=== PATIENT | female | born 1970 | race Hispanic/Latino ===

== ENCOUNTER → 2020-10-09 17:37 | Outpatient (CLI) | payer OTHER, SELFPAY ==
--- NOTE | 2020-10-09 | DI.MRI.S_ITS ---
PROCEDURE: MR SHOULDER RT WO CON INDICATIONS: PAIN IN RT KNEE AND SHOULDER TECHNIQUE: Noncontrast oblique coronal T2 fast spin echo with fat saturation, oblique sagittal T1 spin echo and T2 fast spin echo with fat saturation, axial T1 spin echo and T2 fast spin echo with fat saturation through the shoulder. COMPARISON: None. FINDINGS: Image quality: Excellent. Rotator cuff: There is tendinosis and low-grade articular and bursal surface partial thickness tear involving distal supraspinatus at its insertion on the humeral head extending to musculotendinous junction. Distal infraspinatus is intact. Tendinosis and low-grade partial-thickness tear involving superior to mid fibers of distal subscapularis is seen. No full-thickness rotator cuff tendon rupture. Sagittal images demonstrate no significant muscle atrophy. Bones and bursae: No bone marrow contusions or fractures. Moderate acromioclavicular joint osteoarthritic changes are seen with downward osteophyte formation depressing the musculotendinous junction of supraspinatus. Nonspecific intraosseous cyst formation in greater tuberosity of humeral head is seen. Mild to moderate glenohumeral joint osteoarthritic changes also seen. There is small amount of joint effusion and subacromial subdeltoid bursal fluid. Capsule and soft tissues: There is suggestion of superior anterior labral tear at 12 to 1 o'clock position. The long head of the biceps tendinosis is seen. The rotator interval appears normal, without fibrosis. The coracohumeral ligament is normal in thickness. IMPRESSION: 1. Tendinosis and low-grade articular and bursal surface partial thickness tear involving distal supraspinatus extending to musculotendinous junction. Tendinosis and low-grade partial-thickness tear involving superior to mid fibers of distal subscapularis. 2. Moderate acromioclavicular joint osteoarthritis and [id number] glenohumeral joint osteoarthritis. Small amount of joint effusion and subacromial subdeltoid bursal fluid. 3. Suggestion of superior anterior labral tear at 12 to 1 o'clock position. 4. Proximal intra-articular portion of long head of biceps tendinosis. Dictated by: Miles Aguilar M.D. on 10/10/2020 at 8:44 Approved by: Miles Aguilar M.D. on 10/10/2020 at 8:46
--- NOTE | 2020-10-09 | DI.MRI.S_ITS ---
PROCEDURE: MR KNEE RT WO CON INDICATIONS: PAIN IN RT KNEE AND SHOULDER TECHNIQUE: Noncontrast sagittal PD fast spin echo and T2 fast spin echo with fat saturation, sagittal 3-D FLASH with fat saturation; coronal T1 spin echo and PD fast spin echo with fat saturation, and axial PD fast spin echo with fat saturation through the knee. COMPARISON: None. FINDINGS: Image quality: Excellent. Menisci: There is complex tearing of the body and posterior horn of the lateral meniscus with a horizontal oblique component extending to the inner third of the tibial articular surface at the meniscal body and a shallow radial component at the posterior horn. The medial meniscus is intact. Cruciate ligaments: The anterior and posterior cruciate ligaments appear intact. Medial structures: There is trace edema overlying the medial collateral ligament that could indicate a low-grade sprain. The semimembranosus tendon insertions and meniscocapsular junction appear intact. Visualized portions of the pes anserinus tendons appear normal. No abnormal bursal fluid. Lateral structures: The lateral collateral ligament, long and short heads of the biceps femoris tendon appear intact. The popliteus tendon appears intact. No signs of posterolateral corner injury. Iliotibial band appears normal. Anterior structures: The quadriceps and patellar tendons appear intact. Patellar alignment is normal. No femoral trochlear dysplasia or ventral trochlear prominence. No edema in the infrapatellar fat pad. Bones and cartilage: No bone marrow contusions or fractures. There is mild partial-thickness cartilage irregularity in the central weight-bearing portion of the medial femoral condyle. There is moderate to high-grade cartilage loss in the central to posterior weight-bearing portion of the lateral femorotibial compartment with minimal subchondral edema. Deep cartilage fissuring is seen in the medial femoral trochlea. Joint space: There is a small joint effusion. A trace medial popliteal cyst is present. IMPRESSION: 1. Complex tearing of the lateral meniscus with a horizontal oblique component at the meniscal body extending to the inner third of the tibial articular surface and a shallow radial component in the posterior horn. 2. Possible mild low-grade sprain of the proximal medial collateral ligament. 3. Mild tricompartmental degenerative changes are most severe in the lateral compartment where there is grade 3-4 chondromalacia and marginal osteophyte formation. Grade 2 chondromalacia is seen in the medial compartment and there is deep cartilage fissuring in the anterior compartment. 4. Small joint effusion. Dictated by: William Abdi M.D. on 10/10/2020 at 8:31 Approved by: William Abdi M.D. on 10/10/2020 at 8:42
== END ==
PROVIDERS: Referring Provider Family Medicine; Visit Provider Family Medicine
DX: M25.561 Pain in right knee (principal); S83.271A Complex tear of lateral meniscus, current injury, right knee, initial encounter; M94.261 Chondromalacia, right knee; M25.461 Effusion, right knee; M25.511 Pain in right shoulder; M75.111 Incomplete rotator cuff tear or rupture of right shoulder, not specified as traumatic; M19.011 Primary osteoarthritis, right shoulder; M25.411 Effusion, right shoulder
CPT/HCPCS: 73221; 73721

== ENCOUNTER → 2020-10-29 19:12 | Outpatient (CLI) | payer OTHER, SELFPAY ==
--- NOTE | 2020-10-29 | DI.MRI.S_ITS ---
PROCEDURE: MR HIP RT WO CON INDICATIONS: PAIN IN UNSPECIFIED HIP TECHNIQUE: Noncontrast coronal T1 spin echo and STIR through the bony pelvis. Coronal and axial T2 fast spin echo with fat saturation, sagittal T1 spin echo, and oblique axial T2 fast spin echo with fat saturation through the hip. COMPARISON: None. FINDINGS: Image quality: Excellent. Bones and joints: Bone marrow of the pelvic ring and proximal femurs show normal signal throughout. No intraosseous lesions or fractures. No avascular necrosis of the femoral heads. The visualized lower lumbar spine appears normally aligned. Tendons and ligaments: There is moderate grade partial thickness tearing of the right gluteus medius and minimus tendons at the femoral insertion site. The nearby proximal iliotibial band also appears intact. The iliopsoas tendon appears intact, without adjacent bursal fluid collections or evidence for impingement syndrome. The origin of the hamstring tendon is intact at the ischial tuberosity, as well as the associated sacrotuberous ligament. The straight and reflected heads of the rectus femoris muscle origin appear intact, as well as the conjoint tendon. The ligamentum teres appears intact where visualized. Labrum and cartilage: There is mild ill-defined T2 signal elevation within the superolateral and anterosuperior aspect of the right hip labrum. Cartilage surface of the femoral head appears of normal thickness. The alpha angle of the femur is within normal limits at less than 55 degrees. Soft tissues: Visualized muscles demonstrate normal bulk and internal signal. Quadratus femoris muscle demonstrates no internal edema to suggest ischiofemoral impingement. The proximal sciatic neurovascular bundle appears normal adjacent to the hamstring tendons. No free pelvic fluid. Bladder wall thickness is normal. Genitourinary structures and bowel loops appear normal where visualized. IMPRESSION: 1. Partial-thickness tearing of the right gluteus medius and minimus tendons. 2. Findings suggestive of right hip labral tearing. This could be further assessed with MRI arthrography, if clinically indicated. 3. No fracture or osseous lesion. Dictated by: Praveen Claire M.D. on 10/30/2020 at 8:50 Approved by: Praveen Claire M.D. on 10/30/2020 at 8:52
== END ==
PROVIDERS: PCP Family Medicine; Referring Provider Family Medicine; Visit Provider Family Medicine
DX: S39.013A Strain of muscle, fascia and tendon of pelvis, initial encounter (principal); M25.559 Pain in unspecified hip
CPT/HCPCS: 73721

== ENCOUNTER 2020-10-31 09:45 | Outpatient (RCR) | payer OTHER, SELFPAY ==
--- NOTE | 2020-10-24 15:51 | PT.OIE ---
Current Diagnoses Pain in unspecified shoulder (10/24/20) Visit Care Team Role Provider Type Jackelyn Bailey MD Attending Provider Non-Staff Primary Care Provider Referring Provider Specialty: Family Practice Address: [address] [place] [address], [id number] Email: Physical Therapy Initial Evaluation PT-OP-A Visit Information Start: 10/15/20 08:35 Freq: Status: Active Protocol: Document 10/24/20 10:34 MB (Rec: 10/24/20 10:50 MB [id number]) Out-Patient Physical Therapy Visit Information Visit Information Visit Type Initial Evaluation Visit Note Prime Visit Start Time 10:34 Visit Stop Time 11:11 Total Visit Minutes 37 Visit Number 1 Number of [employer] Visits 0 Precautions Precautions MRIs of right shoulder and right knee are positive for changes PT-OP-B Current Condition Start: 10/15/20 08:35 Freq: Status: Active Protocol: Document 10/24/20 10:34 MB (Rec: 10/24/20 10:50 MB [id number]) Current Condition History of Current Condition Onset Date 2015 initially and then 2020 worse Current Complaints Pain in right arm History of Current Condition Pt states that she is here another week. 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 She reports doing crossfit in 2016 and thinks that she might have injured her right shoulder initially at that time. She denies other acute injury to right shoulder and right knee that would explain MRI findings. Pt is right handed. Occ, she has numbness and tingling down her right arm. She occ has these symptoms when she is sleeping on her right side. Lately, she has been using two pillows under her head to help ease the right arm. Pt denies new onset of head and neck pain. Pt has dx of diabetes and she just started another medication. In [place], she does not get out much d/t air pollution and safety and COVID restrictions. She will be in [place] another year. She saw Dr. Watts who gave her a steroid injection and then ordered PT and said if it 's not better, come back in 6 weeks. Pt reports that she has a history of right knee pain, labral tear in hip and bursitis. Pt rates pain as 4/ 10 right shoulder, 3/10 B lateral hips and groin area, 1 /10 pain right knee. Pt states that she cannot walk more than three miles or she is done as far as pain. Prior Treatments and Tests Right shoulder MRI 10/09/20: tendinosis and low-grade artricular and bursal surface partial thickness tear involving distal supraspinatus extending to musculotendinous junction with similar type tear subscapularis; mod AC joint OA and mild-mod GH joint OA, suggestion of superior anterior labral tear 12-1 o' clock and long head biceps tendinosis Treatment Goals Patient/Caregiver Goals Establish course of treatment for right shoulder so that she knows what she needs to do when she goes to [place] and continues with PT there. PT-OP-C Subjective Start: 10/15/20 08:35 Freq: Status: Active Protocol: Document 10/24/20 10:34 MB (Rec: 10/24/20 10:50 MB [id number]) OP-PT Subjective Patient Comments Patient Comments See history of current condition Patient Questionnaires Quick Dash- Upper Extremity Quick Dash UE Score 23 Quick Dash UE Impairment 20 to 39% Impaired (Score 20- 39) PT-OP-J Posture/Palpation/Skin Start: 10/15/20 08:35 Freq: Status: Active Protocol: Document 10/24/20 10:34 MB (Rec: 10/24/20 15:50 MB [id number]) Posture Evaluation Comments Posture Comments Forward head, rounded shoulders, Dowager's hump, decreased thoracic kyphosis, increased lumbar lordosis, anterior tilt pelvis, left shoulder and SC joint higher than the right, left iliac crest higher than the right, eversion right foot. PT-OP-K Range of Motion Start: 10/15/20 08:35 Freq: Status: Active Protocol: Document 10/24/20 10:34 MB (Rec: 10/24/20 15:50 MB [id number]) Cervical Spine Range of Motion Cervical Spine Active Testing Position Standing Flexion 40 Extension 40 Rotation Left 65 Rotation Right 55 Lateral Flexion Left 30 Lateral Flexion Right 30 Shoulder Goniometric Range of Motion Shoulder Left Shoulder ROM WFL Yes Testing Position Standing Comments Also supine passive ER and IR with shoulder in 90/90 is normal Functional IR behind back Right Shoulder ROM WFL No Testing Position Standing Flexion 100 Abduction 105 Comments Pt limits AROM to pain-free range IR behind back deferred d/t discomfort Supine passive ER and IR with shoulder in 80 deg allowable passive abduction: ER 5 deg and IR 10 deg PT-OP-M Strength Start: 10/15/20 08:35 Freq: Status: Active Protocol: Document 10/24/20 10:34 MB (Rec: 10/24/20 15:50 MB [id number]) Shoulder Strength Shoulder Manual Muscle Testing Left Flexion 5 Normal Abduction (C5) 5 Normal External Rotation 5 Normal Internal Rotation 5 Normal Right Comments MMT deferred d/t pain and limited AROM Elbow/Forearm Strength Elbow and Forearm Manual Muscle Testing Bilateral Flexion (C6) 5 Normal Extension (C7) 5 Normal Wrist Strength Wrist Manual Muscle Testing Bilateral Flexion (C7) 5 Normal Extension (C6) 5 Normal PT-OP-Q Treatments Start: 10/15/20 08:35 Freq: Status: Active Protocol: Document 10/24/20 10:34 MB (Rec: 10/24/20 12:59 MB [id number]) Self-Care/Home Management Treatment Education Patient Education Body Mechanics,Joint Protection,Pain Management Other Education Proper sleeping position with cervical and UE support, use of frozen peas PT-OP-T Assessment and Plan Start: 10/15/20 08:35 Freq: Status: Active Protocol: Document 10/24/20 10:34 MB (Rec: 10/24/20 15:50 MB [id number]) Physical Therapy Assessment Rehab Potential Rehabilitation Potential Fair Evaluation Complexity Number of Personal Factors/Comorbidities 1-2 Number of Body Systems Impaired 3 Clinical Presentation at Evaluation Evolving Impairments Impairments Activity Tolerance,Functional Activities,Pain,Posture,ROM, Sensation,Soft Tissue Mobility ,Strength Other Impairments Pt reports paresthesias right C6 dermatome at night and when sleeping on her right side. Personal factors include right shoulder and right knee changes and pt is moving back to [place] in 1 week and so PT treatment will be reduced to 2 treatments. Her clinical presentation is evolving in setting of joint changes per MRI. Body systems affected include musculoskeletal, neuromuscular and endocrine. Goals 1 Short Term Goal (STG) Pt will perform progressive HEP with I including postural, self-massage, AAROM shoulder ROM, thoracic mobility and core exercises to improve pain and right UE use by 10/31/20. STG Duration 1 week Assessment Summary Assessment Pt is a 50 y/o female presenting with pain and paresthesias in her right UE in setting of anatomical changes per MRI. She presents with decreased ROM, functional use of arm and strength. 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 Will maximize a HEP and plan for her over two visits. She plans to get PT when she returns to [place]. Physical Therapy Plan Frequency and Duration Frequency of Treatment 2x/Week Duration of Treatment 1 week Plan of Care Start Date 10/24/20 Plan of Care End Date 10/31/20 Therapeutic Interventions Therapeutic Interventions Home Exercise Program,Joint Mobilizations,Manual Therapy, Neuromuscular Re-education, Patient/Caregiver Education, Self-Care/Home Management,Soft Tissue Mobilization,Taping, Therapeutic Activities, Therapeutic Exercises Modalities Cold Pack/Ice Massage,Hot Packs Next Visit Focus/Plan Next Note Type Treatment Note Next Visit Plan Initiate racquet ball massage, AAROM with cane, possible pulleys, thoracic mobility, create a possible exercise plan/recommendations going forward
--- NOTE | 2020-10-24 15:51 | PT.OPPOC ---
Physical, Occupational & Speech Therapy At [facility] Current Diagnoses Pain in unspecified shoulder (10/24/20) Visit Care Team Role Provider Type Jackelyn Bailey MD Attending Provider Non-Staff Primary Care Provider Referring Provider Specialty: Family Practice Address: [address] [place] [address], [id number] Email: Plan Of Care PT-OP-T Assessment and Plan Start: 10/15/20 08:35 Freq: Status: Active Protocol: Document 10/24/20 10:34 MB (Rec: 10/24/20 15:50 MB [id number]) Physical Therapy Assessment Rehab Potential Rehabilitation Potential Fair Evaluation Complexity Number of Personal Factors/Comorbidities 1-2 Number of Body Systems Impaired 3 Clinical Presentation at Evaluation Evolving Impairments Impairments Activity Tolerance,Functional Activities,Pain,Posture,ROM, Sensation,Soft Tissue Mobility ,Strength Other Impairments Pt reports paresthesias right C6 dermatome at night and when sleeping on her right side. Personal factors include right shoulder and right knee changes and pt is moving back to [place] in 1 week and so PT treatment will be reduced to 2 treatments. Her clinical presentation is evolving in setting of joint changes per MRI. Body systems affected include musculoskeletal, neuromuscular and endocrine. Goals 1 Short Term Goal (STG) Pt will perform progressive HEP with I including postural, self-massage, AAROM shoulder ROM, thoracic mobility and core exercises to improve pain and right UE use by 10/31/20. STG Duration 1 week Assessment Summary Assessment Pt is a 50 y/o female presenting with pain and paresthesias in her right UE in setting of anatomical changes per MRI. She presents with decreased ROM, functional use of arm and strength. 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 Will maximize a HEP and plan for her over two visits. She plans to get PT when she returns to [place]. Physical Therapy Plan Frequency and Duration Frequency of Treatment 2x/Week Duration of Treatment 1 week Plan of Care Start Date 10/24/20 Plan of Care End Date 10/31/20 Therapeutic Interventions Therapeutic Interventions Home Exercise Program,Joint Mobilizations,Manual Therapy, Neuromuscular Re-education, Patient/Caregiver Education, Self-Care/Home Management,Soft Tissue Mobilization,Taping, Therapeutic Activities, Therapeutic Exercises Modalities Cold Pack/Ice Massage,Hot Packs Next Visit Focus/Plan Next Note Type Treatment Note Next Visit Plan Initiate racquet ball massage, AAROM with cane, possible pulleys, thoracic mobility, create a possible exercise plan/recommendations going forward Plan of Care Dates Plan of Care Start Date 10/24/20 Plan of Care End Date 10/31/20 Electronically Signed by: Geovanna Sanchez, PT 10/24/20 1403 Please Sign and Return: I have reviewed this Plan of Care and certify that the skilled therapy services above are required to meet the patient?s needs. Physician Signature Date Printed Name and Credentials Clinical Instructor Signature Printed Name and Credentials
--- NOTE | 2020-10-29 14:06 | PT.OTN ---
Current Diagnoses Pain in unspecified shoulder (10/29/20) Physical Therapy Treatment Note PT-OP-A Visit Information Start: 10/15/20 08:35 Freq: Status: Active Protocol: Document 10/29/20 12:55 AMH (Rec: 10/29/20 13:57 AMH [id number]) Out-Patient Physical Therapy Visit Information Visit Information Visit Type Treatment Note Visit Start Time 12:55 Visit Stop Time 13:40 Total Visit Minutes 45 Visit Number 2 PT-OP-B Current Condition Start: 10/15/20 08:35 Freq: Status: Active Protocol: Document 10/24/20 10:34 MB (Rec: 10/24/20 10:50 MB [id number]) Current Condition History of Current Condition Onset Date 2015 initially and then 2020 worse Current Complaints Pain in right arm History of Current Condition Pt states that she is here another week. She is active and is stationed in [place]. 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 She denies other acute injury to right shoulder and right knee that would explain MRI findings. Pt is right handed. Occ, she has numbness and tingling down her right arm. She occ has these symptoms when she is sleeping on her right side. Lately, she has been using two pillows under her head to help ease the right arm. Pt denies new onset of head and neck pain. Pt has dx of diabetes and she just started another medication. In [place], she does not get out much d/t air pollution and safety and COVID restrictions. She will be in [place] another year. She saw Dr. Watts who gave her a steroid injection and then ordered PT and said if it 's not better, come back in 6 weeks. Pt reports that she has a history of right knee pain, labral tear in hip and bursitis. Pt rates pain as 4/ 10 right shoulder, 3/10 B lateral hips and groin area, 1 /10 pain right knee. Pt states that she cannot walk more than three miles or she is done as far as pain. 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 PT-OP-C Subjective Start: 10/15/20 08:35 Freq: Status: Active Protocol: Document 10/29/20 12:55 AMH (Rec: 10/29/20 13:55 AMH [id number]) OP-PT Subjective Patient Comments Patient Comments PT REPORTS THE injection she recieved the end of September seems to have helped her shoulder. She is being more careful with her shoulder now but it seems like my ROM is alot better now and there is less pain. Pt says her referral to PT was supposed to include her right knee. This got left out but supposedly the referral just came through. Patient Reported Progress Improving PT-OP-J Posture/Palpation/Skin Start: 10/15/20 08:35 Freq: Status: Active Protocol: Document 10/24/20 10:34 MB (Rec: 10/24/20 15:50 MB [id number]) Posture Evaluation Comments Posture Comments Forward head, rounded shoulders, Dowager's hump, decreased thoracic kyphosis, increased lumbar lordosis, anterior tilt pelvis, left shoulder and SC joint higher than the right, left iliac crest higher than the right, eversion right foot. PT-OP-K Range of Motion Start: 10/15/20 08:35 Freq: Status: Active Protocol: Document 10/24/20 10:34 MB (Rec: 10/24/20 15:50 MB [id number]) Cervical Spine Range of Motion Cervical Spine Active Testing Position Standing Flexion 40 Extension 40 Rotation Left 65 Rotation Right 55 Lateral Flexion Left 30 Lateral Flexion Right 30 Shoulder Goniometric Range of Motion Shoulder Left Shoulder ROM WFL Yes Testing Position Standing Comments Also supine passive ER and IR with shoulder in 90/90 is normal Functional IR behind back Right Shoulder ROM WFL No Testing Position Standing Flexion 100 Abduction 105 Comments Pt limits AROM to pain-free range IR behind back deferred d/t discomfort Supine passive ER and IR with shoulder in 80 deg allowable passive abduction: ER 5 deg and IR 10 deg PT-OP-M Strength Start: 10/15/20 08:35 Freq: Status: Active Protocol: Document 10/24/20 10:34 MB (Rec: 10/24/20 15:50 MB [id number]) Shoulder Strength Shoulder Manual Muscle Testing Left Flexion 5 Normal Abduction (C5) 5 Normal External Rotation 5 Normal Internal Rotation 5 Normal Right Comments MMT deferred d/t pain and limited AROM Elbow/Forearm Strength Elbow and Forearm Manual Muscle Testing Bilateral Flexion (C6) 5 Normal Extension (C7) 5 Normal Wrist Strength Wrist Manual Muscle Testing Bilateral Flexion (C7) 5 Normal Extension (C6) 5 Normal PT-OP-Q Treatments Start: 10/15/20 08:35 Freq: Status: Active Protocol: Document 10/29/20 12:55 AMH (Rec: 10/29/20 13:55 AMH [id number]) Therapeutic Exercises Supine Exercises supine stretch over 1/2 foam roll Reps/Minutes 2 min hold, arms by side with palms up Comments good tolerance and pt notes this feels good AAROM shoulder flexion with wand Reps/Minutes x 20 reps Sitting Exercises seated shoulder tayler Reps/Minutes x 4 min AAROM Standing Exercises standing rows Side bilateral Reps/Minutes 3x10 reps standing shoulder IR with theraband Reps/Minutes 3x10 reps standing shoulder ER with theraband Resistance level 1 Reps/Minutes 3 x 10 reps Comments cues to keep in a pain free ROM Self-Care/Home Management Treatment Activities Self-Care/Home Management Activities pt educated on racquet ball massage and foam roll stretch for thoracic mobiiity PT-OP-T Assessment and Plan Start: 10/15/20 08:35 Freq: Status: Active Protocol: Document 10/29/20 12:55 AMH (Rec: 10/29/20 14:05 AMH [id number]) Physical Therapy Assessment Assessment Summary Assessment The cortisone injection seems to have been beneficial for Nikky as she is noting decreased pain since the injection on October 20. She was able to tolerate AAROM on the shoulder tayler as well as in supine with wand. I did work on some thoracic mobility with the miracle balls and foam roll and we discussed using the raquet balls as well . She liked this. I tried her in quadruped for thoracic mobility but she did not tolerate this due to a lateral meniscus tear. She reports her initial referral was supposed to have her right knee included on it. She states her doctor has sent over a referral for her knee but she only has one visit left prior to returning to [place]. I started level 1 theraband for IR/ER and rows and this was tolerated well. Physical Therapy Plan Frequency and Duration Frequency of Treatment 2x/Week Duration of Treatment 1 week Plan of Care Start Date 10/24/20 Plan of Care End Date 10/31/20 Therapeutic Interventions Therapeutic Interventions Home Exercise Program,Joint Mobilizations,Manual Therapy, Neuromuscular Re-education, Patient/Caregiver Education, Self-Care/Home Management,Soft Tissue Mobilization,Taping, Therapeutic Activities, Therapeutic Exercises Modalities Cold Pack/Ice Massage,Hot Packs Next Visit Focus/Plan Next Note Type Treatment Note Next Visit Plan next visit is Nikky's last visit before returning to [place]. Review exercises and progress if able.
--- NOTE | 2020-10-31 10:30 | PT.OPPOC ---
Physical, Occupational & Speech Therapy At [facility] Current Diagnoses Pain in unspecified shoulder (10/31/20) Visit Care Team Role Provider Type Jackelyn Bailey MD Attending Provider Non-Staff Primary Care Provider Referring Provider Specialty: Family Practice Address: [address] [place] [address], [id number] Email: Plan Of Care PT-OP-T Assessment and Plan Start: 10/15/20 08:35 Freq: Status: Active Protocol: Document 10/31/20 09:46 MB (Rec: 10/31/20 10:30 MB [id number]) Physical Therapy Assessment Rehab Potential Rehabilitation Potential Fair Evaluation Complexity Number of Personal Factors/Comorbidities 1-2 Number of Body Systems Impaired 3 Clinical Presentation at Evaluation Evolving Impairments Impairments Activity Tolerance,Functional Activities,Pain,Posture,ROM, Sensation,Soft Tissue Mobility ,Strength Other Impairments Pt reports paresthesias right C6 dermatome at night and when sleeping on her right side. Personal factors include right shoulder and right knee changes and pt is moving back to [place] in 1 week and so PT treatment will be reduced to 2 treatments. Her clinical presentation is evolving in setting of joint changes per MRI. Body systems affected include musculoskeletal, neuromuscular and endocrine. Goals 1 Short Term Goal (STG) Pt will perform progressive HEP with I including postural, self-massage, AAROM shoulder ROM, right knee, thoracic mobility and core exercises to improve pain and right UE use by 10/31/20. 10/31/20: Pt is performing shoulder exercises and added knee and self-taping today. STG Duration Met Assessment Summary Assessment Pt presents with edema right greater than left knee, antalgic gait with step-to pattern and favoring the right leg today. AROM in supine is: 10-90 deg right knee and 3- 130 deg left knee. Ed pt in self-care, self-taping and exercises today. Will d/c PT as pt is flying back to [place] today. Physical Therapy Plan Frequency and Duration Frequency of Treatment 2x/Week Duration of Treatment 1 week Plan of Care Start Date 10/24/20 Plan of Care End Date 10/31/20 Therapeutic Interventions Therapeutic Interventions Home Exercise Program,Joint Mobilizations,Manual Therapy, Neuromuscular Re-education, Patient/Caregiver Education, Self-Care/Home Management,Soft Tissue Mobilization,Taping, Therapeutic Activities, Therapeutic Exercises Modalities Cold Pack/Ice Massage,Hot Packs Plan of Care Dates Plan of Care Start Date 10/24/20 Plan of Care End Date 10/31/20 Electronically Signed by: Geovanna Sanchez, NANCY 10/31/20 1030 Please Sign and Return: I have reviewed this Plan of Care and certify that the skilled therapy services above are required to meet the patient?s needs. Physician Signature Date Printed Name and Credentials Clinical Instructor Signature Printed Name and Credentials
--- NOTE | 2020-10-31 10:31 | PT.OTN ---
Current Diagnoses Pain in unspecified shoulder (10/31/20) Physical Therapy Treatment Note PT-OP-A Visit Information Start: 10/15/20 08:35 Freq: Status: Active Protocol: Document 10/31/20 09:46 MB (Rec: 10/31/20 10:30 MB [id number]) Out-Patient Physical Therapy Visit Information Visit Information Visit Type Progress Note Visit Start Time 09:46 Visit Stop Time 10:26 Total Visit Minutes 40 Visit Number 3 Precautions Precautions Received order for knee PT-OP-B Current Condition Start: 10/15/20 08:35 Freq: Status: Active Protocol: Document 10/24/20 10:34 MB (Rec: 10/24/20 10:50 MB [id number]) Current Condition History of Current Condition Onset Date 2015 initially and then 2020 worse Current Complaints Pain in right arm History of Current Condition Pt states that she is here another week. She is active and is stationed in [place]. 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 She denies other acute injury to right shoulder and right knee that would explain MRI findings. Pt is right handed. Occ, she has numbness and tingling down her right arm. She occ has these symptoms when she is sleeping on her right side. Lately, she has been using two pillows under her head to help ease the right arm. Pt denies new onset of head and neck pain. Pt has dx of diabetes and she just started another medication. In [place], she does not get out much d/t air pollution and safety and COVID restrictions. She will be in [place] another year. She saw Dr. Watts who gave her a steroid injection and then ordered PT and said if it 's not better, come back in 6 weeks. Pt reports that she has a history of right knee pain, labral tear in hip and bursitis. Pt rates pain as 4/ 10 right shoulder, 3/10 B lateral hips and groin area, 1 /10 pain right knee. Pt states that she cannot walk more than three miles or she is done as far as pain. 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 PT-OP-C Subjective Start: 10/15/20 08:35 Freq: Status: Active Protocol: Document 10/31/20 09:46 MB (Rec: 10/31/20 10:30 MB [id number]) OP-PT Subjective Patient Comments Patient Comments Pt states that she feels good with her shoulder exercises. Her right knee has been really problematic. She is doing shoulder exercises. She flies back to [place] today. PT-OP-J Posture/Palpation/Skin Start: 10/15/20 08:35 Freq: Status: Active Protocol: Document 10/24/20 10:34 MB (Rec: 10/24/20 15:50 MB [id number]) Posture Evaluation Comments Posture Comments Forward head, rounded shoulders, Dowager's hump, decreased thoracic kyphosis, increased lumbar lordosis, anterior tilt pelvis, left shoulder and SC joint higher than the right, left iliac crest higher than the right, eversion right foot. PT-OP-K Range of Motion Start: 10/15/20 08:35 Freq: Status: Active Protocol: Document 10/24/20 10:34 MB (Rec: 10/24/20 15:50 MB [id number]) Cervical Spine Range of Motion Cervical Spine Active Testing Position Standing Flexion 40 Extension 40 Rotation Left 65 Rotation Right 55 Lateral Flexion Left 30 Lateral Flexion Right 30 Shoulder Goniometric Range of Motion Shoulder Left Shoulder ROM WFL Yes Testing Position Standing Comments Also supine passive ER and IR with shoulder in 90/90 is normal Functional IR behind back Right Shoulder ROM WFL No Testing Position Standing Flexion 100 Abduction 105 Comments Pt limits AROM to pain-free range IR behind back deferred d/t discomfort Supine passive ER and IR with shoulder in 80 deg allowable passive abduction: ER 5 deg and IR 10 deg PT-OP-M Strength Start: 10/15/20 08:35 Freq: Status: Active Protocol: Document 10/24/20 10:34 MB (Rec: 10/24/20 15:50 MB [id number]) Shoulder Strength Shoulder Manual Muscle Testing Left Flexion 5 Normal Abduction (C5) 5 Normal External Rotation 5 Normal Internal Rotation 5 Normal Right Comments MMT deferred d/t pain and limited AROM Elbow/Forearm Strength Elbow and Forearm Manual Muscle Testing Bilateral Flexion (C6) 5 Normal Extension (C7) 5 Normal Wrist Strength Wrist Manual Muscle Testing Bilateral Flexion (C7) 5 Normal Extension (C6) 5 Normal PT-OP-Q Treatments Start: 10/15/20 08:35 Freq: Status: Active Protocol: Document 10/31/20 09:46 MB (Rec: 10/31/20 10:30 MB [id number]) Therapeutic Exercises Supine Exercises Rod stretch Side bilateral Comments Abdominal drawing in, opposite leg bent and then dangle leg Hamstring stretch with AP Side bilateral Comments Opposite leg straight, AP HS, AP, QS, GS, hip abduction and adduction Side bilateral Comments 5 reps Manual Therapy Treatment Other Other Manual Treatments KT right knee with c strip under the right knee and I strips medial and lateral knee Self-Care/Home Management Treatment Education Other Education Use of compression hose 15-20 mmHg and Tubagrip, how to measure self for thigh high compression, anti-inflammatory diet and increase non- caffeinated fluid intake, benefits of self-taping, KT Kineso Eligio GOLD black tape and pt took photo, makes video of PT taping PT knee like PT taped her, frozen vegetables for shoulder and knee pain, encouragement that pt can email PT when she moves to [place] PT-OP-T Assessment and Plan Start: 10/15/20 08:35 Freq: Status: Active Protocol: Document 10/31/20 09:46 MB (Rec: 10/31/20 10:30 MB [id number]) Physical Therapy Assessment Rehab Potential Rehabilitation Potential Fair Evaluation Complexity Number of Personal Factors/Comorbidities 1-2 Number of Body Systems Impaired 3 Clinical Presentation at Evaluation Evolving Impairments Impairments Activity Tolerance,Functional Activities,Pain,Posture,ROM, Sensation,Soft Tissue Mobility ,Strength Other Impairments Pt reports paresthesias right C6 dermatome at night and when sleeping on her right side. Personal factors include right shoulder and right knee changes and pt is moving back to [place] in 1 week and so PT treatment will be reduced to 2 treatments. Her clinical presentation is evolving in setting of joint changes per MRI. Body systems affected include musculoskeletal, neuromuscular and endocrine. Goals 1 Short Term Goal (STG) Pt will perform progressive HEP with I including postural, self-massage, AAROM shoulder ROM, right knee, thoracic mobility and core exercises to improve pain and right UE use by 10/31/20. 10/31/20: Pt is performing shoulder exercises and added knee and self-taping today. STG Duration Met Assessment Summary Assessment Pt presents with edema right greater than left knee, antalgic gait with step-to pattern and favoring the right leg today. AROM in supine is: 10-90 deg right knee and 3- 130 deg left knee. Ed pt in self-care, self-taping and exercises today. Will d/c PT as pt is flying back to [place] today. Physical Therapy Plan Frequency and Duration Frequency of Treatment 2x/Week Duration of Treatment 1 week Plan of Care Start Date 10/24/20 Plan of Care End Date 10/31/20 Therapeutic Interventions Therapeutic Interventions Home Exercise Program,Joint Mobilizations,Manual Therapy, Neuromuscular Re-education, Patient/Caregiver Education, Self-Care/Home Management,Soft Tissue Mobilization,Taping, Therapeutic Activities, Therapeutic Exercises Modalities Cold Pack/Ice Massage,Hot Packs
== END 2020-11-03 08:28 | disposition home or self-care (01) ==
LOC: PHYS 09:45
PROVIDERS: PCP Family Medicine; Referring Provider Family Medicine; Visit Provider Family Medicine
DX: M25.519 Pain in unspecified shoulder (principal); S83.209A Unspecified tear of unspecified meniscus, current injury, unspecified knee, initial encounter
CPT/HCPCS: 97110; 97161; 97535